=== PATIENT | female | born 1935 | race Caucasian/White ===

== ENCOUNTER 2017-11-15 20:21 | Inpatient (IN) | payer OTHER ==
[~2017-11-15] VITALS: Ht 162.6 cm; Wt 64.9 kg
--- NOTE | ~2017-11-15 | EKG ---
[address] [address] ELECTROCARDIOGRAM REPORT Name: DARNELL MI Room #: 357-P ADM IN M.R.#: [id number] Admission: 11/15/17 Attend Phys: Hiram Braga Discharge: Date of : 37 Report #: [id number] THIS REPORT FOR: //name// [facility] ED Test Date: 2017-11-15 Test Time: 20:37:55 Pat Name: DARNELL MI Department: Room: 357 Gender: F Sourcing Specialist: LUIS : [id number] Requested By: Dick Hood Order Number: [id number] MD: Jonas Mack Measurements Intervals [place] Rate: 70 P: 61 RI: 174 QRS: 43 QRSD: 87 T: 58 QT: 560 QTc: 605 Interpretive Statements Sinus rhythm Borderline T abnormalities, lateral leads Prolonged QT interval Compared to ECG 12/19/2013 11:24:00 Prolonged QT interval now present T-wave abnormality still present Electronically Signed On 11-16-2017 7:30:46 CDT by Jonas Mack [email or web address] <ELECTRONICALLY SIGNED> By: Jonas Mack MD, [facility] 11/16/17 0730 36 36 Jonas Mack MD, [facility] /EPI
--- NOTE | ~2017-11-15 | 2DMMODE ---
[facility] [address] [place] [address] 2 D/M-MODE ECHOCARDIOGRAM Name: DARNELL MI Room #: 357-P ADM IN M.R.#: [id number] Admission: 11/15/17 Attend Phys: Hiram Bonilla Discharge: Date of : 37 Date of Service: 11/16/17 1302 Report #: [id number] THIS REPORT FOR: //name// APPROVED REPORT Study performed: 11/16/2017 11:15:09 EXAM: Comprehensive 2D, Doppler, and color-flow Echocardiogram Patient Location: Bedside Room #: 357 Status: routine BSA: 1.70 HR: 70 bpm BP: 152/86 mmHg Rhythm: NSR Other Information Study Quality: Adequate/Poor parasternal window. Indications CVA. Hx: CVA, HTN, HLP 2D Dimensions RVDd: 26.52 mm IVSd: 10.63 (7-11mm) LVOT Diam: 21.60 (18-24mm) LVDd: 46.21 mm PWd: 8.58 (7-11mm) LVDs: 31.33 (25-40mm) Aortic Root: 30.99 mm Volumes Left Atrial Volume (Systole) Single Plane 4CH: 40.13 mL Single Plane 2CH: 47.65 mL LA ESV Index: 28.00 mL/m2 Aortic Valve AoV Peak Devante.: 1.25 m/s AO Peak Gr.: 6.25 mmHg LVOT Max P.43 mmHg LVOT Max V: 0.93 m/s REESE Vmax: 2.71 cm2 Mitral Valve E/A Ratio: 0.9 MV Decel. Time: 232.50 ms MV E Max Devante.: 0.90 m/s [facility] [address] [place] [address] 2 D/M-MODE ECHOCARDIOGRAM Name: DARNELL MI Room #: 357-P [facility] IN ..#: [id number] Admission: 11/15/17 Attend Phys: Hiram Bonilla Discharge: Date of : 37 Date of Service: 11/16/17 1302 Report #: [id number] A Devante.: 1.05 m/s MV PHT: 67.42 ms IVRT: 92.27 ms Pulmonary Valve PV Peak Devante.: 0.77 m/s PV Peak Gr.: 2.40 mmHg Pulmonary Vein P Vein S: 0.44 m/s P Vein A: 0.33 m/s P Vein D: 0.26 m/s P Vein A Dur.: 138.4 msec P Vein S/D Ratio: 1.69 Tricuspid Valve TR Peak Devante.: 2.32 m/s TR Peak Gr.: 21.53 mmHg Left Ventricle The left ventricle is normal size. There is normal LV segmental wall motion. Mild basal septal hypertrophy is present. Left ventricular systolic function is normal. LVEF is 60-65%. Mild diastolic dysfunction is present (impaired relaxation pattern). Right Ventricle The right ventricle is normal size. The right ventricular systolic function is normal. Atria The left atrium size is normal. The right atrium size is normal. Aortic Valve The aortic valve is normal in structure. No aortic regurgitation is present. There is no aortic valvular stenosis. Mitral Valve Mild mitral annular calcification. There is no mitral valve regurgitation noted. Tricuspid Valve The tricuspid valve is normal in structure. Trace to mild tricuspid regurgitation. Estimated PAP is 22mmHg plus the right atrial pressure. Pulmonic Valve Pulmonic valve is not well visualized. [facility] [address] [place] [address] 2 D/M-MODE ECHOCARDIOGRAM Name: DARNELL MI Room #: 357-P [facility] IN M.R.#: [id number] Admission: 11/15/17 Attend Phys: Hiram Bonilla Discharge: Date of : 37 Date of Service: 11/16/17 1302 Report #: [id number] Great Vessels The aortic root is normal in size. Ascending aorta is not well visualized. IVC is not well visualized. Pericardium There is no pericardial effusion. <Conclusion> Left ventricular systolic function is normal. LVEF is 60-65%. There is normal LV segmental wall motion. The aortic valve is normal in structure. No aortic regurgitation or stenosis Mild mitral annular calcification. No mitral valve regurgitation. Trace to mild tricuspid regurgitation. Estimated pulmonary artery pressure of 22mmHg plus the right atrial pressure. There is no pericardial effusion. <ELECTRONICALLY SIGNED> By: Jonas Mack MD, FACC 11/16/17 130 01 01 Jonas Mack MD, FACC /INF
--- NOTE | ~2017-11-15 | HC ---
[facility] [place] [address] CONSULTATION Name: DARNELL MI Room #: 357-P ADM IN M.R.#: [id number] Admission: 11/15/17 Attend Phys: Hiram Braga Discharge: Date of : 37 Report #: [id number] THIS REPORT FOR: //name// CC: Liat Braga MD Neurology Consultation HISTORY OF PRESENT ILLNESS: The patient is an 82-year-old female who presents with a 2-hour episode of left lower extremity weakness. The patient states that the leg just kept giving out on her. This reminded her of her stroke in 2013 when she had weakness involving the left lower extremity. A CT scan of the head demonstrated an indeterminate right parietal lobe infarct. Since that time, the patient has been on aspirin 325 mg daily. The patient states that she made a complete recovery from this stroke. To her knowledge, she was never told why she had had this stroke. This morning, she states she is back to baseline. PAST MEDICAL HISTORY: Hypertension, hyperlipidemia, stroke. PAST SURGICAL HISTORY: Left subclavian stent. MEDICATIONS: Vitamin D 2000 units daily, citalopram 10 mg daily, Ambien 5-10 mg at bedtime, omeprazole 20 mg daily, loratadine 10 mg daily, calcium with vitamin D daily, bupropion 150 mg daily, B12 500 mcg daily, Lexapro 5 mg daily, Avapro one tablet daily, levothyroxine 100 mcg daily, naproxen 220 mg daily, aspirin 325 mg daily, atorvastatin 10 mg at bedtime, Colace 100 mg b.i.d., donepezil 5 mg at bedtime, Diovan 80 mg daily. ALLERGIES: None. PHYSICAL EXAMINATION: VITAL SIGNS: Temperature is 36.4, pulse rate 75, respiratory rate 20, blood pressure 152/86, bedside pulse oximetry 96% on room air. NEUROLOGIC: Cranial nerves 2-12 are grossly intact. Motor exam demonstrates symmetrical strength in all 4 extremities with tone and bulk normal. Reflexes are trace throughout. Plantar responses are flexor. Coordination demonstrates intact [id number]. Gait was not tested. LABORATORY DATA: White blood cell count 7, hemoglobin 14.7, hematocrit 43.2, MCV 84.6, and platelet count 201,000. INR 1. Urinalysis negative. Chemistry: Sodium 140, potassium 3.9, chloride 106, carbon dioxide 26, BUN 19, creatinine 1, GFR 53, glucose 86. Liver functions normal. Triglycerides 129, cholesterol 143, LDL 73, HDL 45. TSH 4.6. IMPRESSION: This patient has a prior history of stroke. Yesterday, she may have had a transient ischemic attack. An MRI of the head has been ordered. I [address] [address] CONSULTATION Name: DARNELL MI Room #: 357-P [facility] IN M.R.#: [id number] Admission: 11/15/17 Attend Phys: Hiram Braga Discharge: Date of : 37 Report #: [id number] have added a carotid ultrasound and echocardiogram to complete the workup. Her cholesterol is very well controlled with Lipitor 10 mg at bedtime. Until the workup is complete, she may continue aspirin 325 mg daily, but this may need to be adjusted and she may require the addition of Plavix 75 mg daily. I have also asked physical therapy to work with her. I thank you for your kind referral of the patient and we will continue to follow her with you. <ELECTRONICALLY SIGNED> By: Sole Juan DO 11/16/17 1227 0746 0845 Sole Juan DO /nt
[~2017-11-15 20:21] MED LIST: ALEVE220 MG PO; ASPIR 8181 M1 PO; ASPIRIN EC81 M1 PO; BENADRYL25 MG PO; BISACODYL SUPP10 MG RECTAL; CALCIUM 600 +1 EAC1 PO; CALCIUM 600 MG1 EAC2 PO; CELEXA20 MG PO; COLACE100 MG PO; DIOVAN 80 MG TA80 M1 PO; DIOVAN HCT 80-1 EACH PO; DONEPEZIL HCL5 M1 PO; LEVOTHYROXIN0.112 M1 PO; LIPITOR10 MG PO; LORATIDINE 10 M10 M1 PO; MILK OF MA2400 MG/10 PO; MIRALAX17 GM PO; OMEPRAZOLE20 M2 PO; SENNA PO; TYLENOL325 MG PO; VITAMIN D-32000 UNIT PO; ZOCOR20 MG PO; ZOLPIDEM TARTRA10 MG PO
[2017-11-15] MEDS ORDERED: TESSALON PERLE100 M1 PO (20:34)
[2017-11-15] MEDS ORDERED: WELLBUTRIN 100100 MG PO (20:34)
[2017-11-15] MEDS ORDERED: CALCIUM CITRAT250 MG PO (20:35)
[2017-11-15] MEDS ORDERED: VITAMIN B-12500 MCG PO (20:36)
[2017-11-15] MEDS ORDERED: LEXAPRO5 MG PO (20:36)
[2017-11-15] MEDS ORDERED: SYNTHROID100 MC1 PO (20:37)
[2017-11-15] MEDS ORDERED: AVAPRO75 MG PO (20:37)
[2017-11-15 20:42] LABS: BASOPHILS 0.6 % (0.0-2.0); EOSINOPHILS 1.8 % (0.0-3.0); HEMATOCRIT 43.2 % (37.0-47.0); HEMOGLOBIN 14.7 gm/dL (12.0-15.0); LYMPHOCYTES 18.5 % (24.0-44.0); MCH 28.8 pg (26.0-34.0); MCV 84.5 fL (80.0-100.0); MONOCYTES 7.6 % (1.0-8.0); PLATELET COUNT 201 thou/uL (150-400); POLYS 71.5 % (36.0-66.0); RBC 5.11 mil/uL (4.20-5.00); RDW 14.4 % (10.5-14.5)
[2017-11-15] MEDS ORDERED: LIDOCAINE CREAM 4% (20:44)
[2017-11-15] MEDS ORDERED: ALEVE220 MG PO (20:45)
[2017-11-15] MEDS ORDERED: BACTRIM DS TAB1 EACH PO (20:46)
[2017-11-15 20:58] LABS: PROTIME 9.9 Seconds (9.3-11.4)
[2017-11-15 21:25] LABS: ANION GAP 9 mmol/L (7-16); BUN 24 mg/dL (7-18); CALCIUM 9.5 mg/dL (8.5-10.1); CHLORIDE 103 mmol/L (98-107); CO2 24 mmol/L (21-32); CREATININE 1.3 mg/dL (0.6-1.0); GLUCOSE 108 mg/dL (74-106); POTASSIUM 4.2 mmol/L (3.5-5.1); SODIUM 136 mmol/L (136-145)
[2017-11-15 21:31] LABS: ALBUMIN 3.7 g/dL (3.4-5.0); SGOT 19 U/L (15-37); SGPT 15 U/L (30-65); TOTAL BILIRUBIN 0.7 mg/dL (<0.1-1.0); TOTAL PROTEIN 7.2 g/dL (6.4-8.2); TROPONIN-I <0.06 ng/mL (<0.06)
[2017-11-15 21:38] LABS: URINE BILIRUBIN NEGATIVE (Negative); URINE BLOOD TRACE (Negative); URINE CLARITY CLEAR; URINE COLOR YELLOW; URINE GLUCOSE-RANDOM* NEGATIVE (Negative); URINE KETONES 1+ (Negative); URINE LEUKOCYTES-REFLEX NEGATIVE (Negative); URINE NITRITE-REFLEX NEGATIVE (Negative); URINE PROTEIN (DIPSTICK) NEGATIVE (Negative); URINE SPECIFIC GRAVITY >= 1.030 (1.005-1.035); URINE UROBILINOGEN 0.2 E.U./dl (0.2-1.0)
[2017-11-15 22:07] VITALS: BP 156/78
[2017-11-15 22:45] VITALS: BP 170/83
[2017-11-16 00:15] VITALS: BP 150/72
[2017-11-16 04:00] VITALS: BP 152/86
[2017-11-16 05:49] LABS: CALCIUM 8.6 mg/dL (8.5-10.1); POTASSIUM 3.9 mmol/L (3.5-5.1)
[2017-11-16 06:19] LABS: CHOLESTEROL 143 mg/dL (<200); HDL CHOLESTEROL 45 mg/dL (>40); LDL CHOLESTEROL 73 mg/dL (<100); TC:HDL 3.2 Ratio (Not establshd); TRIGLYCERIDE 129 mg/dL (<150); VLDL 26 mg/dL (<40)
[2017-11-16 10:00] VITALS: BP 139/63
[2017-11-16 15:03] VITALS: BP 144/70
[2017-11-16 19:30] VITALS: BP 147/67
[2017-11-17 03:40] VITALS: BP 148/70
[2017-11-17 07:13] VITALS: BP 153/74
[2017-11-17 12:43] VITALS: BP 148/82
[2017-11-17 15:16] VITALS: BP 134/78
[2017-11-17 20:00] VITALS: BP 139/74
[2017-11-18 04:29] VITALS: BP 150/89
[2017-11-18 07:31] VITALS: BP 134/61
[2017-11-18 11:36] VITALS: BP 140/72
[2017-11-18 15:31] VITALS: BP 137/60
[2017-11-18 19:04] VITALS: BP 139/68
[2017-11-19] VITALS (10 sets, daily range): BP systolic 132–167; BP diastolic 70–87
[2017-11-20 04:00] VITALS: BP 126/75
[2017-11-20 06:16] LABS: HEMATOCRIT 42.7 % (37.0-47.0); HEMOGLOBIN 14.5 gm/dL (12.0-15.0); MCH 28.7 pg (26.0-34.0); MCV 84.5 fL (80.0-100.0); RBC 5.05 mil/uL (4.20-5.00); RDW 14.6 % (10.5-14.5); WBC 5.1 thou/uL (4.0-11.0)
[2017-11-20 06:27] LABS: CALCIUM 9.2 mg/dL (8.5-10.1); CREATININE 1.1 mg/dL (0.6-1.0)
[2017-11-20 07:27] VITALS: BP 146/80
[2017-11-20 11:29] VITALS: BP 150/79
[2017-11-20 16:06] VITALS: BP 132/76
[2017-11-20 19:27] VITALS: BP 146/79
[2017-11-21 03:30] VITALS: BP 148/81
[2017-11-21 07:18] VITALS: BP 170/77
[2017-11-21 12:00] VITALS: BP 154/74
[2017-11-21 16:00] VITALS: BP 148/86
[2017-11-21 19:32] VITALS: BP 118/77
[2017-11-22 03:41] VITALS: BP 131/76
[2017-11-22 05:51] LABS: HEMATOCRIT 43.2 % (37.0-47.0); HEMOGLOBIN 14.3 gm/dL (12.0-15.0); MCH 28.1 pg (26.0-34.0); MCV 85.3 fL (80.0-100.0); RBC 5.07 mil/uL (4.20-5.00); RDW 14.7 % (10.5-14.5); WBC 5.7 thou/uL (4.0-11.0)
[2017-11-22 06:03] LABS: CALCIUM 9.4 mg/dL (8.5-10.1); CREATININE 1.1 mg/dL (0.6-1.0); MAGNESIUM 1.9 mg/dL (1.8-2.4)
[2017-11-22 06:31] LABS: FOLIC ACID 6.5 ng/mL (8.6-58.9)
[2017-11-22 07:29] VITALS: BP 128/65
[2017-11-22 11:20] VITALS: BP 127/72
== END 2017-11-22 15:05 | DRG 64 ==
LOC: ER 20:21 → EROBS 21:52 → 3W 21:52
PROVIDERS: Internal Medicine; Nuclear Medicine Nuclear Cardiology; Nurse Practitioner Acute Care; Physician Assistant
PROC: B41F1ZZ Fluoroscopy of Right Lower Extremity Arteries using Low Osmolar Contrast (ICD-10-PCS; principal; 2017-11-19)
PROC: B41G1ZZ Fluoroscopy of Left Lower Extremity Arteries using Low Osmolar Contrast (ICD-10-PCS; principal; 2017-11-19)
PROC: B4181ZZ Fluoroscopy of Bilateral Renal Arteries using Low Osmolar Contrast (ICD-10-PCS; principal; 2017-11-19)
PROC: B3151ZZ Fluoroscopy of Bilateral Common Carotid Arteries using Low Osmolar Contrast (ICD-10-PCS; principal; 2017-11-19)
PROC: B4141ZZ Fluoroscopy of Superior Mesenteric Artery using Low Osmolar Contrast (ICD-10-PCS; principal; 2017-11-19)
DX: I63.231 Cerebral infarction due to unspecified occlusion or stenosis of right carotid arteries (principal); N17.0 Acute kidney failure with tubular necrosis; I10 Essential (primary) hypertension; R29.6 Repeated falls; E78.5 Hyperlipidemia, unspecified; E03.9 Hypothyroidism, unspecified; G47.00 Insomnia, unspecified; M19.90 Unspecified osteoarthritis, unspecified site; I73.9 Peripheral vascular disease, unspecified; K21.9 Gastro-esophageal reflux disease without esophagitis; Z87.891 Personal history of nicotine dependence; Z79.82 Long term (current) use of aspirin; Z79.899 Other long term (current) drug therapy; Z82.49 Family history of ischemic heart disease and other diseases of the circulatory system; Z83.3 Family history of diabetes mellitus; Z28.21 Immunization not carried out because of patient refusal
CPT/HCPCS: 10879

== ENCOUNTER 2017-11-17 13:37 | Inpatient (IN) | payer OTHER ==
[~2017-11-17] VITALS: Ht 162.6 cm; Wt 68.5 kg
--- NOTE | ~2017-11-17 | PLAN ---
[facility] [address] [address] REHAB UNIT PLAN OF CARE Name: DARNELL MI Room #: 513-P ADM IN M.R.#: [id number] Admission: 11/22/17 Attend Phys: Hilton Haywood MD Discharge: Date of : 37 Report #: [id number] THIS REPORT FOR: //name// CC: Liat Haywood DATE OF SERVICE: 11/24/2017 PROGRESS NOTE AND OVERALL PLAN OF CARE SUBJECTIVE: The patient is seen back today in followup. She is in no distress. Last recorded temperature 36.7, pulse 76, respirations 20, blood pressure 130/82. No calf swelling. Neurologically, she does have what appears to be a left inferior quadrantanopia to visual confrontation. Transfers are min assist with gait min assist 175 feet with a front-wheeled walker. She has some decreased left-sided coordination deficits. Lower body dressing is max assist. In speech therapy, she has functional comprehension, [id number]-hb-[id number] cognitive deficits. ASSESSMENT: 1. 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 2. Left-sided weakness. 3. Left visual field neglect. 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 4. Right internal carotid artery stenosis 90%. 5. Prior history of a right cerebrovascular accident on 11/2013. 6. Hypertension. 7. Hyperlipidemia. 8. Hypothyroidism. PLAN: The overall plan of care is based on the preadmission screen, post-admission physician evaluation and information garnered from therapy assessments. 1. Estimated length of stay is probably at least 2-3 weeks pending progress. 2. Medical prognosis is reasonably good. 3. Anticipated interventions includes the interdisciplinary acute inpatient rehabilitation program. 4. Anticipated functional outcomes would be for the patient to become modified independent with transfers, mobility, ADLs and improved as far as cognition and visual perceptual deficits, as she can hopefully return back to her prior living situation. She will have involvement with the interdisciplinary acute inpatient rehabilitation team, PT, OT and speech, rehabilitation nursing and learning consultant physicians. 5. Discharge destination would be back to the home setting. She does live in an independent living apartment, used a roller walker. 6. Expected therapy by discipline includes PT, OT and speech 1 hour per day [place] [id number] REHAB UNIT PLAN OF CARE Name: DARNELL MI Room #: 513-P [facility] IN [facility].#: [id number] Admission: 11/22/17 Attend Phys: Hilton Haywood MD Discharge: Date of : 37 Report #: [id number] each five days a week throughout the duration of the acute inpatient rehabilitation stay. <ELECTRONICALLY SIGNED> By: Hilton Haywood MD 12/08/17 1319 0838 0858 Hilton Haywood MD /nt
--- NOTE | ~2017-11-17 | HC ---
[facility] [place] [address] [place] [address] CONSULTATION Name: DARNELL MI Room #: 513-P ADM IN M.R.#: [id number] Admission: 11/22/17 Attend Phys: Hilton Haywood MD Discharge: Date of : 37 Report #: [id number] THIS REPORT FOR: //name// CC: Liat Haywood DATE OF SERVICE: 12/04/2017 NEUROBEHAVIORAL STATUS EXAM: ATTENDING PHYSICIAN: Hilton Haywood MD. NURSE CLINICIAN: Fredy Cruz, PhD. CLINICAL PRESENTATION: The patient is an 82-year-old female admitted to the rehab unit at [facility] for comprehensive inpatient rehabilitation program to improve functional mobility, activities of daily living and self-care and mental status secondary to a subacute right posterior parietal occipital CVA. Her assessment on rehab includes left-sided weakness, right internal carotid artery stenosis at 90%, history of right CVA on 11/27/2013, hypertension, hyperlipidemia and hypothyroidism. A complete description of her medical condition, history and medications can be found in her medical record. Neuropsychological consultation was requested to provide assistance in the assessment of cognitive and emotional status and provide recommendations and services. Prior to this most recent admission, she was in an assisted living apartment. She had recently moved to [facility] in 10/2017 because of difficulty with falling. The patient has 2 children. A good social support is reported. She is from her second marriage. 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 The patient obtained a master's degree in [employer] and history. There is no reported prior history of alcohol/drug abuse or treatment for depression or anxiety. She indicates having not had alcohol for the last 4 years. TECHNIQUES UTILIZED: Clinical interview, review of medical records, staff consultation and behavioral observation, mini mental status exam 2 standard version, clock drawing and verbal fluency assessment (letter and category). EXAMINATION FINDINGS: The patient was alert and cooperative with the assessment. She accurately described events surrounding her admission. There is no report of auditory or visual hallucinations. She does present with some mild word finding deficits during interview. She does not report difficulty with short-term memory, appetite or energy level. She was not sure of the extent to which she was affected by the stroke. Her sleep is reported as good with medication. There are no changes in appetite. [address] [address] CONSULTATION Name: DARNELL MI Room #: 513-P [facility] IN M.R.#: [id number] Admission: 11/22/17 Attend Phys: Hilton Haywood MD Discharge: Date of : 37 Report #: [id number] Her performance on the MMSE 2 brief version was within normal limits with a raw score of 15 of 16. The patient was 3/3 for initial registration, 5/5 for orientation to time and place and 2/3 for immediate recall of 3 items after a brief time delay and distraction. Her performance on the MMSE 2 standard version was 28 of 30. She was 5/5 for serial sevens, naming, repetition, comprehension, ability to read and follow single command and writing within normal limits. The patient had difficulty with copying a simple geometric design. Letter fluency is in the borderline range with a T score of 34 and percentile rank of 5. Category fluency was extremely low with a T score of 23 and percentile rank of less than 1. Overall, total verbal fluency was a T score of 28 and percentile rank of 1. While the patient is showing well-maintained receptive language skills, her verbal fluency is showing significant impairment. Deficits in verbal fluency can often be associated with variability in thought organization that is a consequence of a vascular event within the right hemisphere. 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 RECOMMENDATIONS: The patient would benefit from increased assistance upon discharge, primarily with thought organization, planning and problem solving. Variability in expressive speech may make it more difficult for her to acquire the help that is necessary. Deficits in the initiation of action and goal oriented behavior are likely to require help. Help with aspects of instrumental activities of daily living as well as written instruction on specific behaviors to help with compensation. Thank you very much for allowing me to provide the consultation on this patient. <ELECTRONICALLY SIGNED> By: Fredy Cruz, PhD 12/05/17 2223 1430 0521 Fredy Cruz, PhD /nt
--- NOTE | ~2017-11-17 | HC ---
[facility] [place] [address] CONSULTATION Name: DARNELL MI Room #: 513-P [facility] IN M.R.#: [id number] Admission: 11/22/17 Attend Phys: Hilton Haywood MD Discharge: 12/08/17 Date of : 37 Report #: [id number] THIS REPORT FOR: //name// CC: Liat Haywood LEAD ELECTRICIAN: Hilton Garza, PhD REASON FOR CONSULTATION: To provide information relevant to treatment planning on the rehabilitation service. HISTORY OF PRESENT ILLNESS: The patient is an 82-year-old white female admitted on 11/17/2017 with left side weakness. She lives alone at [facility], and complained that the weakness came on quite suddenly. She has previous left-sided deficits due to a previous stroke in 2013. She denied facial weakness or speech impairment and none was noted. MRI reportedly indicated subacute right posterior occipital cerebrovascular accident. METHOD: The patient was interviewed, unit staff were consulted, available records were reviewed and the mini mental status examination 2 was utilized. RESULTS OF THE EXAMINATION: The patient was interviewed lying in her bed and was awake and alert and cooperative. Observed mood was euthymic. She denied depression and anxiety. There were no indications of ongoing psychotic processes. She was able to give a coherent account of recent events in her life, and also discussed pending plans for treatment of a partially blocked carotid artery. She was able to present remote personal and career history with good detail and to name her immediate family members and state their ages. Memory function is quite intact for personal, irrelevant and remote information. On the mini mental status 2 exam, her only deficit was on recall, in which she was unable to recall 3 previously registered words after 1 minute. Registration, orientation to time and place, attention and concentration, naming, repetition, comprehension, reading, writing, and drawing were all intact. Overall, score on the mini mental status exam 2 was in the average range. DIAGNOSTIC IMPRESSION: Possible very mild vascular neurocognitive disorder. Her level of cognitive function and emotional status are consistent with eventual return to her premorbid living situation. <ELECTRONICALLY SIGNED> By: Hilton Garza, PhD 12/10/17 1445 1321 [id number] Hilton Garza, PhD /nt
--- NOTE | ~2017-11-17 | H ---
[facility] [place] [address] [address] HISTORY AND PHYSICAL Name: DARNELL MI Room #: 513-P ADM IN M.R.#: [id number] Admission: 11/22/17 Attend Phys: Hilton Haywood MD Discharge: Date of : 37 Report #: [id number] THIS REPORT FOR: //name// CC: Liat Haywood DATE OF SERVICE: 11/22/2017 HISTORY OF PRESENT ILLNESS: The patient was originally admitted to [facility] on 11/15/2017 with left-sided weakness, which calls to her to fall to the ground while she was working with outpatient physical therapy. MRI showed a subacute right posterior parietal occipital CVA. She was seen by Neurology. Plavix was added. She had a history of a prior right cerebrovascular accident in 11/2013 with minimal left-sided residual. She was noted to have a significant decline in her premorbid function with the left-sided weakness. She also was diagnosed with right internal carotid artery stenosis. Carotid angio showed 90% and it indicated that she will need a carotid endarterectomy in 3-4 weeks. MRI confirmed a subacute ischemic infarct in right posterior parietal occipital region. Please see the full history and physical dictation for the patient's past medical history, allergies. HABITS: No history of tobacco or alcohol abuse. SOCIAL HISTORY: Lives alone, independent living apartment. Used a roller walker. Was independent with ADLs. REVIEW OF SYSTEMS: No complaints of chest pain, shortness of breath or abdominal discomfort. PHYSICAL EXAMINATION: VITAL SIGNS: As noted. She was seen earlier, was sleepy, pleasant. HEENT: Facies appeared symmetric. CHEST: Sounded clear to auscultation. CARDIOVASCULAR: Regular rate and rhythm. ABDOMEN: Bowel sounds positive, nontender. GENITOURINARY AND RECTAL: Deferred. Was able to verbalize without obvious word substitution or problems with word finding. EXTREMITIES: She does have left-sided weakness, a grade 4-/5 with some left neglect. No calf swelling. Transfers have been at a min assist level with gait. Short distances min assist with a front-wheeled walker. ASSESSMENT: 1. 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 2. Left-sided weakness. [facility] [address] [place] [address] HISTORY AND PHYSICAL Name: DARNELL MI Room #: 513-P ADM IN ..#: [id number] Admission: 11/22/17 Attend Phys: Hilton Haywood MD Discharge: Date of : 37 Report #: [id number] 3. Right internal carotid artery stenosis 90%. 4. History of right cerebrovascular accident on 11/2013. 5. Hypertension. 6. Hyperlipidemia. 7. Hypothyroidism. PLAN: The patient is admitted for acute in-hospital inpatient rehabilitation. From a postadmission physician evaluation perspective, there are no relevant changes since the preadmission screening. Please see the review of prior and current medical and functional conditions and comorbidities. As far as risk of complications, the patient has the above noted medical comorbidities as noted above. Initial plan of care involves the interdisciplinary acute inpatient rehabilitation program with the goal of maximizing the patient's functional independence, so that she can hopefully return back to her prior living situation. Measurable functional goals would be for the patient to become modified independent with transfers, mobility and ADLs as well as cognitive communication issues that she can return back to the home setting. Goal would be back home at least at the walker level. Prognosis is reasonably good with estimated length of stay probably at least 2-3 weeks pending progress. Potential barriers would include her multiple medical comorbidities and decreased functional status. The patient meets diagnostic criteria for an acute in-hospital inpatient rehabilitation stay. She meets medical necessity criteria. We will have the gis consultant physicians continue to follow. She does have the tolerance for therapies and has appropriate discharge goals back to the home setting. <ELECTRONICALLY SIGNED> By: Hilton Haywood MD 12/03/17 0910 1007 1127 Hilton Haywood MD /nt
--- NOTE | ~2017-11-17 | H ---
[facility] [place] [address] HISTORY AND PHYSICAL Name: DARNELL MI Room #: 513-P ADM IN M.R.#: [id number] Admission: 11/22/17 Attend Phys: Hilton Haywood MD Discharge: Date of : 36 Report #: [id number] THIS REPORT FOR: //name// CC: Liat Haywood DATE OF SERVICE: 11/22/2017 HISTORY OF PRESENT ILLNESS: This is an 82-year-old female who presented to the hospital with left-sided weakness. MRI scan of the brain revealed a subacute right posterior parietal/occipital CVA. She was evaluated by Neurology, and Plavix was added to her medication regimen. Ultrasound of the carotids showed some right internal carotid artery stenosis. Cerebral angiogram performed by IR revealed 90% stenosis of the right internal carotid artery with exophytic plaque. She is not a candidate for carotid stent. She will need to have a right carotid endarterectomy in about 3-4 weeks. She is now admitted to acute inpatient rehab for further strengthening prior to returning back home. Today, she denies headache, dizziness. She denies cough, chest pain, shortness of air. She denies nausea or constipation. She had a bowel movement yesterday. She denies difficulty urinating or dysuria. She does note her left-sided neglect. She denies any numbness or tingling. 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 HABITS: She is a former cigarette smoker 1 pack per day for 40 years. She quit smoking approximately 20 years ago. Denies any alcohol use. She quit drinking in 2013 and was a daily drinker until that time. No illicit drug use. ALLERGIES: PSEUDOEPHEDRINE. CURRENT MEDICATIONS: Losartan 25 mg daily, Claritin 10 mg daily, vitamin B12 of 500 mcg daily, Plavix 75 mg daily, Celexa 20 mg daily, vitamin D 2000 units daily, calcium plus vitamin D 1 tablet daily, Tums 500 mg 3 times a day, bupropion 150 mg daily, aspirin 325 mg daily, Protonix 20 mg daily, Synthroid 100 mcg daily, Aricept 5 mg at bedtime, atorvastatin 10 mg at bedtime, lidocaine p.r.n., Ambien p.r.n., Benadryl p.r.n., Benzonatate p.r.n., Tylenol p.r.n., Colace p.r.n., senna p.r.n.. SOCIAL HISTORY: The patient lives in an independent living apartment by herself. She utilized a roller walker premorbidly. She was independent with her ADLs. She had some assistance with IADLs. Her daughter is actively involved. REVIEW OF SYSTEMS: Remainder of her 14-point review of systems is negative [address] [address] HISTORY AND PHYSICAL Name: DARNELL MI Room #: 513-P [facility] IN MDarlene.#: [id number] Admission: 11/22/17 Attend Phys: Hilton Haywood MD Discharge: Date of : 36 Report #: [id number] except as listed in HPI. PHYSICAL EXAMINATION: VITAL SIGNS: 139/86, respirations 20, pulse 95, temperature of 98.1. She is 92% oxygen on room air. GENERAL: She is awake, alert, oriented x 4. She is in no acute distress. She is on room air. HEENT: Head is normocephalic. Eyes: EOMs are intact. No nystagmus. ENT: No sinus tenderness. LUNGS: Clear to auscultation bilaterally. No crackles, no wheeze. HEART: S1, S2, regular rate and rhythm. ABDOMEN: Bowel sounds are positive. Soft, nontender, nondistended. GENITOURINARY: No CVA tenderness. SKIN: Warm, dry and intact. NEUROLOGIC: She does have some left-sided neglect, left side weaker greater than the right. Decreased range of motion of the left upper extremity, mild abnormalities, pbwedj-aw-omer testing. No clonus, wrists or ankles. No lower extremity edema. Negative Homans sign. Min assist for sit to stand transfers, min assist ambulating 200 feet with a 4-wheel walker. She is mod assist for stairs. Bed mobility, standby assist. Visual field defect. PSYCHIATRIC: Pleasant affect. LABORATORY DATA: From 11/23/2017, sodium 135, potassium 3.8, BUN 20, creatinine 1.1. WBC 4.7, hemoglobin 14.2, platelets 193. Folic acid 6.5, vitamin B12 of 1155. ASSESSMENT: 1. Subacute right posterior parietal/occipital cerebrovascular accident. 2. Left-sided weakness. 3. Right internal carotid artery stenosis of 90%. 4. Hypertension. 5. Hyperlipidemia. 6. Hypothyroidism. 7. History of previous right cerebrovascular accident, 11/2013, with left-sided residual. PLAN: The patient has been admitted to acute inpatient rehabilitation for physical and occupational therapies with the goal to return back to her independent living apartment. She will need to have a carotid endarterectomy done in the next 3-4 weeks. We will have our hospitalist continue to follow for [address] [address] HISTORY AND PHYSICAL Name: DARNELL MI Room #: 513-P ADM IN .R.#: [id number] Admission: 11/22/17 Attend Phys: Hilton Haywood MD Discharge: Date of : 36 Report #: [id number] acute medical issues. She will have a team conference today. Please see extensive orders. <ELECTRONICALLY SIGNED> By: BURT Laureano 11/23/17 1240 1006 1041 BURT Laureano /nt
[~2017-11-17 13:37] MED LIST changes: +AVAPRO75 MG PO; +BACTRIM DS TAB1 EACH PO; +CALCIUM CITRAT250 MG PO; +LEXAPRO5 MG PO; +LIDOCAINE CREAM 4%; +SYNTHROID100 MC1 PO; +TESSALON PERLE100 M1 PO; +VITAMIN B-12500 MCG PO; +WELLBUTRIN 100100 MG PO
[2017-11-22 15:00] VITALS: BP 134/62
[2017-11-22 19:33] VITALS: BP 139/62
[2017-11-23 05:42] LABS: HEMATOCRIT 42.2 % (37.0-47.0); HEMOGLOBIN 14.2 gm/dL (12.0-15.0); MCH 28.6 pg (26.0-34.0); MCHC 33.7 g/dL (28.0-37.0); MCV 84.8 fL (80.0-100.0); RBC 4.98 mil/uL (4.20-5.00); RDW 14.6 % (10.5-14.5); WBC 4.7 thou/uL (4.0-11.0)
[2017-11-23 05:49] LABS: CALCIUM 9.5 mg/dL (8.5-10.1); CREATININE 1.1 mg/dL (0.6-1.0); POTASSIUM 3.8 mmol/L (3.5-5.1)
[2017-11-23 08:15] VITALS: BP 139/86
[2017-11-23 19:30] VITALS: BP 130/82
[2017-11-24 07:45] VITALS: BP 159/89
[2017-11-24 19:15] VITALS: BP 118/69
[2017-11-25 19:20] VITALS: BP 136/50
[2017-11-26 08:05] VITALS: BP 134/67
[2017-11-26 19:57] VITALS: BP 130/67
[2017-11-27 07:45] VITALS: BP 142/67
[2017-11-27 19:44] VITALS: BP 134/59
[2017-11-28 08:00] VITALS: BP 123/56
[2017-11-28 20:38] VITALS: BP 131/69
[2017-11-29 04:32] LABS: ABSOLUTE NEUTROPHILS 3.3 thou/uL (1.4-8.2); BASOPHILS 0.7 % (0.0-2.0); CALCIUM 9.1 mg/dL (8.5-10.1); CREATININE 1.2 mg/dL (0.6-1.0); EOSINOPHILS 2.6 % (0.0-3.0); HEMATOCRIT 41.1 % (37.0-47.0); HEMOGLOBIN 13.8 gm/dL (12.0-15.0); MAGNESIUM 1.9 mg/dL (1.8-2.4); MCH 28.5 pg (26.0-34.0); MCHC 33.7 g/dL (28.0-37.0); MCV 84.7 fL (80.0-100.0); MONOCYTES 10.8 % (1.0-8.0); PLATELET COUNT 210 thou/uL (150-400); POLYS 57.9 % (36.0-66.0); POTASSIUM 3.9 mmol/L (3.5-5.1); RBC 4.85 mil/uL (4.20-5.00); RDW 14.6 % (10.5-14.5); WBC 5.7 thou/uL (4.0-11.0)
[2017-11-29 08:00] VITALS: BP 132/76
[2017-11-29 19:33] VITALS: BP 120/60
[2017-11-30 08:15] VITALS: BP 141/74
[2017-11-30 19:45] VITALS: BP 134/56
[2017-12-01 08:30] VITALS: BP 152/71
[2017-12-01 19:27] VITALS: BP 132/59
[2017-12-02 09:19] VITALS: BP 132/72
[2017-12-02 19:20] VITALS: BP 141/62
[2017-12-03 06:19] LABS: ABSOLUTE NEUTROPHILS 2.6 thou/uL (1.4-8.2); BASOPHILS 0.8 % (0.0-2.0); EOSINOPHILS 4.2 % (0.0-3.0); HEMATOCRIT 39.5 % (37.0-47.0); HEMOGLOBIN 13.4 gm/dL (12.0-15.0); MCH 28.9 pg (26.0-34.0); MONOCYTES 10.6 % (1.0-8.0); PLATELET COUNT 202 thou/uL (150-400); POLYS 55.4 % (36.0-66.0); RBC 4.64 mil/uL (4.20-5.00); RDW 14.6 % (10.5-14.5); WBC 4.8 thou/uL (4.0-11.0)
[2017-12-03 06:37] LABS: CREATININE 1.2 mg/dL (0.6-1.0); POTASSIUM 3.8 mmol/L (3.5-5.1)
[2017-12-03 08:00] VITALS: BP 145/85
[2017-12-03 19:20] VITALS: BP 135/57
[2017-12-04 19:42] VITALS: BP 131/57
[2017-12-05 08:00] VITALS: BP 146/62
[2017-12-05 19:35] VITALS: BP 127/49
[2017-12-06 08:20] VITALS: BP 144/67
[2017-12-06 19:30] VITALS: BP 132/60
[2017-12-07 08:51] VITALS: BP 142/62
[2017-12-07 19:20] VITALS: BP 140/64
[2017-12-08 09:00] VITALS: BP 138/66
[2017-12-08] MEDS ORDERED: SENNA8.6 MG PO (09:17)
[2017-12-08] MEDS ORDERED: COLACE100 MG PO (09:17)
[2017-12-08] MEDS ORDERED: TUMS PO ×2 (09:17)
[2017-12-08] MEDS ORDERED: PLAVIX 75 MG TA75 M1 PO (09:17)
== END 2017-12-08 14:34 | DRG 65 ==
PROVIDERS: Nurse Practitioner; Physical Medicine & Rehabilitation
DX: I63.231 Cerebral infarction due to unspecified occlusion or stenosis of right carotid arteries (principal); N17.9 Acute kidney failure, unspecified; G81.94 Hemiplegia, unspecified affecting left nondominant side; Z60.2 Problems related to living alone; R53.81 Other malaise; I10 Essential (primary) hypertension; E03.9 Hypothyroidism, unspecified; F41.9 Anxiety disorder, unspecified; F32.9 Major depressive disorder, single episode, unspecified; H53.9 Unspecified visual disturbance; E78.5 Hyperlipidemia, unspecified; F01.50 Vascular dementia, unspecified severity, without behavioral disturbance, psychotic disturbance, mood disturbance, and anxiety; K59.00 Constipation, unspecified; H53.462 Homonymous bilateral field defects, left side; Z86.73 Personal history of transient ischemic attack (TIA), and cerebral infarction without residual deficits; Z87.891 Personal history of nicotine dependence; Z88.8 Allergy status to other drugs, medicaments and biological substances; Z79.899 Other long term (current) drug therapy; Z79.82 Long term (current) use of aspirin; Z79.01 Long term (current) use of anticoagulants
CPT/HCPCS: 10112

== ENCOUNTER 2018-05-10 21:20 | Inpatient (IN) | payer OTHER ==
[~2018-05-10] VITALS: Ht 162.6 cm; Wt 70.5 kg
--- NOTE | ~2018-05-10 | HC ---
[facility] [place] [address] CONSULTATION Name: DARNELL MI Room #: 422-P ADM IN M.R.#: [id number] Admission: 05/10/18 ������������������ Attend Phys: Fahad Sparks MD Discharge: ������������������ Date of : 36 Report #: [id number] THIS REPORT FOR: //name// CC: Fahad Maynard DATE OF SERVICE: 05/11/2018 HISTORY OF PRESENT ILLNESS: This is an 82-year-old female patient who was evaluated by me for the leg weakness. She is a poor historian. She had a prior CVA, but she is saying that she got weakness in the legs just in the last few days. She does not believe it is associated with any urinary incontinence. It is not clear how much weakness was there even before because of her prior stroke. REVIEW OF SYSTEMS: Indicate that looks like this patient had a stroke in the past. She has a history of hypothyroidism. She has a prior history of leg weakness. She does not think her memory is affected. She denies any new eye, ENT, cardiac, respiratory, GI, , musculoskeletal, constitutional, dermatological, hematological, psychiatric, throat, allergic symptom associated with present symptomatology. PAST MEDICAL HISTORY: Positive for stroke affecting the left side of the body. FAMILY HISTORY: Negative for any early age stroke. SOCIAL HISTORY: She apparently has a daughter, but she is not here and I am not able to talk to her. PHYSICAL EXAMINATION: Indicates she is alert. She is responsive. She thinks it is April. She knows what hospital she is in. She is able to name the president. Cranial nerve examination 2-12 indicates I cannot tell about the visual field, but it looks like they are affected. She has weakness on the left side, but I do not know how much is old and how much is new. Neuromuscular examinations indicate that she is weak in all 4 extremities. She can still move all 4 extremities, but it would appear she is weak in the proximal muscles of upper and lower extremities. Her reflexes are somewhat diminished. Her position sense is intact. Her tone looks symmetrical. It does not look like she has much cerebellar sign. I could not look at the patient's fundus. Cardiac examination is unremarkable. No respiratory difficulty or rhonchi was noticed. Pulses are palpable. No edema or cyanosis was noticed. Blood pressure is 151/60, pulse is 76, temperature is 98.6. LABORATORY DATA: White count is 7.4. She did have an MRI of the brain, which [place] [address] CONSULTATION Name: DARNELL MI Room #: 422- ADM IN M.R.#: [id number] Admission: 05/10/18 ������������������ Attend Phys: Fahad Sparks MD Discharge: ������������������ Date of : 36 Report #: [id number] IMPRESSION: Poorly defined history, but it looks like she is having weakness and weakness may be in all 4 extremities. Legs are more affected. Her CPK is high. The cause is not very clear. We need to consider the possibility of polymyositis in this patient, but the course appeared to be rapid. Rhabdomyolysis is another possibility and we will see if it comes down. RECOMMENDATIONS: I would like to get the MRI of the thoracic spine. Hopefully, we will get some pictures of cervical spine on the methods and procedures analyst images. We will see what happened to her CPK. She will need an EMG, but we do not have a machine in the hospital. I will try to contact the daughter also and see if we can get some more history from her. Thank you very much for this referral. ��������������������������������������������� ���������������������������������������� By: ��������������������������������������������� 1703 1551 Wali Gracia MD /nt
[~2018-05-10 21:20] MED LIST changes: +PLAVIX 75 MG TA75 M1 PO; +SENNA8.6 MG PO; +TUMS PO
[2018-05-10 21:22] VITALS: BP 109/85
[2018-05-10 22:23] LABS: ABSOLUTE NEUTROPHILS 5.5 thou/uL (1.4-8.2); BASOPHILS 0.4 % (0.0-2.0); EOSINOPHILS 0.2 % (0.0-3.0); HEMATOCRIT 40.4 % (37.0-47.0); HEMOGLOBIN 13.6 gm/dL (12.0-15.0); MCH 27.7 pg (26.0-34.0); MCHC 33.6 g/dL (28.0-37.0); MCV 82.5 fL (80.0-100.0); MONOCYTES 9.6 % (1.0-8.0); PLATELET COUNT 213 thou/uL (150-400); POLYS 73.8 % (36.0-66.0); RDW 13.7 % (10.5-14.5); WBC 7.4 thou/uL (4.0-11.0)
[2018-05-10 22:30] LABS: CALCIUM 9.3 mg/dL (8.5-10.1); CREATININE 1.1 mg/dL (0.6-1.0); POTASSIUM 3.7 mmol/L (3.5-5.1)
[2018-05-10] MEDS ORDERED: CRANBERRY200 MG PO (22:32)
[2018-05-10] MEDS ORDERED: ALEVE220 MG PO (22:33)
[2018-05-10 22:38] LABS: URINE BILIRUBIN NEGATIVE (Negative); URINE BLOOD 2+ (Negative); URINE CLARITY CLEAR; URINE COLOR YELLOW; URINE GLUCOSE-RANDOM* NEGATIVE (Negative); URINE KETONES NEGATIVE (Negative); URINE LEUKOCYTES-REFLEX NEGATIVE (Negative); URINE NITRITE-REFLEX NEGATIVE (Negative); URINE PROTEIN (DIPSTICK) NEGATIVE (Negative); URINE SPECIFIC GRAVITY 1.015 (1.005-1.035); URINE UROBILINOGEN 0.2 E.U./dl (0.2-1.0)
[2018-05-10 22:45] LABS: ALBUMIN 3.5 g/dL (3.4-5.0); TOTAL BILIRUBIN 0.9 mg/dL (<0.1-1.0); TOTAL PROTEIN 6.9 g/dL (6.4-8.2); TROPONIN-I 0.07 ng/mL (<0.06)
[2018-05-10 22:51] LABS: SQUAMOUS 4-10 Moderate /LPF (0-3)
[2018-05-10 22:52] LABS: BACTERIA-REFLEX 1-9 Few /HPF (None Seen); CASTS None Seen /LPF (None Seen); CRYSTALS None Seen /LPF (None Seen); MUCUS 0-3 Light strn/LPF (None Seen); URINE RBC 3-10 Few /HPF (0-2); URINE WBC-REFLEX 0-5 Rare /HPF (0-5)
[2018-05-10 23:45] VITALS: BP 160/51
[2018-05-10 23:59] VITALS: BP 153/59
[2018-05-11 00:15] VITALS: BP 153/70
--- NOTE | 2018-05-11 00:53 | NUR ---
PT ARRIVED TO THE UNIT AT AROUND 0010 HRS. ADMITTED TO ROOM 422. PT IS WEAK AND REQUIRES MAX ASSIST.ALERT TO SELF, PLACE AND TIME. PT KIDS AROUND AND SUPPORTIVE. SHE DENIES PAIN. FALL PREC INITIATED.VSS.CALL LIGHT WITHIN REACH. WILL CONTINUE WITH POC TILL EOS.
[2018-05-11 04:30] VITALS: BP 148/60
[2018-05-11 06:55] LABS: TROPONIN-I 0.08 ng/mL (<0.06)
[2018-05-11 07:49] VITALS: BP 142/63
--- NOTE | 2018-05-11 08:50 | EKG ---
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: ananth : 1935 Requested By: Shani De Leon Order Number: [id number] MD: Mega Molina Measurements Intervals [place] Rate: 73 P: 45 KS: 173 QRS: 41 QRSD: 104 T: 22 QT: 451 QTc: 497 Interpretive Statements Sinus rhythm Compared to ECG 11/15/2017 20:37:55 T-wave abnormality no longer present Electronically Signed On 05-11-2018 8:50:23 CDT by Mega Molina [email or web address] ��������������������������������������������� <ELECTRONICALLY SIGNED> ���������������������������������������� By: Mega Molina MD ��������������������������������������������� 05/11/18 0850 05 05 Mega Molina MD /SAMUEL
--- NOTE | 2018-05-11 09:04 | NUR ---
POWER PLANT ASSISTANT CALLED AT 0840 THIS AM R/T PT GARBLED SPEECH WITH OT AND MILD CONFUSION. PT A/O X 2-3. HAS PAST HX OF CVA WITH L SIDED RESIDUAL WEAKNESS. PT VSS. BG 96. NO FURTHER ORDERS RECEIVED FROM PCP.
--- NOTE | 2018-05-11 09:39 | EKG ---
[address] [address] ELECTROCARDIOGRAM REPORT Name: DARNELL MI Room #: 422-P ADM IN M.R.#: [id number] ������������������ Admission: 05/10/18 ������������������ Attend Phys: Fahad Sparks MD Discharge: ������������������ Date of : 36 Report #: [id number] ����������������������������������������������������������������� [id number] THIS REPORT FOR: //name// 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: GRQ : 1935 Requested By: Fahad Sparks Order Number: [id number] MD: Jonas Mack Measurements Intervals [place] Rate: 71 P: 21 ND: 146 QRS: 35 QRSD: 108 T: 10 QT: 433 QTc: 471 Interpretive Statements Sinus rhythm Abnormal R-wave progression, early transition Borderline T abnormalities Compared to ECG 05/10/2018 22:06:42 T-wave abnormality now present Electronically Signed On 05-11-2018 9:39:47 CDT by Jonas Mack [email or web address] ��������������������������������������������� <ELECTRONICALLY SIGNED> ���������������������������������������� By: Jonas Mack MD, [facility] ��������������������������������������������� 05/11/18 0939 0853 0853 Jonas Mack MD, [facility] /EPI
--- NOTE | 2018-05-11 11:39 | NUR ---
ASSUMED CARE OF PT AT 0700. OT REPORTED PT CONFUSED AND DIFFICULTY SPEAKING AT 0827. PHYSICIAN NOTIFIED X3. RAPID RESPONSE INITIATED. PT IN STABLE CONDITION. SOME DIFFICULTY SPEAKING STILL NOTED, TREMORS, AND WEAKNESS. PHYSICIAN AWARE. NEW SPEECH EVAL ORDERS. PLAN FOR MRI TODAY. DENIES PAIN. WILL CONTINUE TO MONITOR.
--- NOTE | 2018-05-11 12:04 | NUR ---
Case opened to follow for dc planning. Pt known to cm from recent admission in November 2017 with [facility] acute rehab stay d/t cva. Pt readmitted with rhabdo and r/o cva. MRI pending today d/t severe le weakness and garbled speech. PT/OT evaling this am. Complex Commercial Litigation Paralegal visited with the pt's dtr Rosa via phone. She reports that the pt dc'd from [facility] in November and when to [facility] for continued rehab. She went to [facility] in December with Regis ARRIAGA. She is still recieving home therapy services. The pt is indep in her apt with her rolator walker. She is occasionally incont and is able to change her own depends. 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 She does require supervision/setup for bathing. Meals are brought to her apt and her dtr sets up her pill box. The pt's dtr Rosa and son Manish are her DPOA's for health care if needed. They are receptive to [facility] again or [facility] acute rehab pending her workup,diagnosis and recommendations. Support provided. Dtr concerned about a new stroke. Will follow. Regis silva is aware of the pt admission and following along.
--- NOTE | 2018-05-11 14:29 | NUR ---
FAXED REFERRAL TO [facility] LEFT MSG WITH DEVONTE IN ADM. TO REVIEW REFERRAL AND PT. RESIDES AT [facility]. DCP TO FOLLOW.
[2018-05-11 16:02] VITALS: BP 151/60
[2018-05-11 19:22] VITALS: BP 145/64
--- NOTE | 2018-05-12 03:48 | NUR ---
ASSESSMENT COMPLETED AT THE START OF SHIFT. PT SLEEPY. ALERT TO SELF AND PLACE. FORGETFUL. FLAT AFFECT WITH OCCASIONAL SMILE. DENIES PAIN. BEEN INCONTINENT THE WHOLE TIME. HAD A BM.APPEARS WEAK AND DIFFICULT TO ROLE IN BED WITHOUT ASSIST. AFEBRILE. WILL CONTINUE WITH POC TILL EOS.
[2018-05-12 04:51] VITALS: BP 152/71
--- NOTE | 2018-05-12 09:18 | NUR ---
PT IS AQ&0X3, VERY QUIET AND SLOW W/ANSWERS, WOKE UP WITH RIGHT EYE SHUT FROM SLEEP DEBRIS, SHOWED CALL LIGHT USE AND SHE DID RETURN DEMO. SLOW TO SWALLOW FOOD/PILLS. RA, HAS MRI SCHEDULED FOR 1129, LET HER KNOW WE'D CLEAN HER UP AFTER BREAKFAST. IV MACHINE BEEPING D/T OCCLUSION FROM HER BENDING HER RIGHT ARM W/IV IN RAC. WILL WRAP AFTER BREAKFAST SHE'S USING IT TO EAT WITH. ENCOURAGED HER TO CALL FOR ANY NEEDS
[2018-05-12 09:30] VITALS: BP 149/69
--- NOTE | 2018-05-12 15:21 | NUR ---
S/W DTR TO DISCUSS REHAB AT [facility] AND SHE IS AGREEABLE TO TRANSFER ONCE MEDICALLY STABLE. UPDATE PROVIDED TO YASSINE FROM [facility]. DTR CONCERNED ABOUT WHAT PT'S DX IS AT THIS POINT WITH THE CHANGE IN HER CONDITION.
[2018-05-12 18:30] VITALS: BP 137/67
[2018-05-12 19:07] LABS: TSH 1.334 uIU/mL (0.358-3.740)
[2018-05-12 20:25] VITALS: BP 150/74
--- NOTE | 2018-05-13 02:21 | NUR ---
PT STILL SAYING VERY FEW WORDS.TAKES TIME TO ANSWER QUESTIONS. DENIES PAIN. HEAVY WETTER. HAD A LARGE BM AT THE START OF SHIFT. PT REQUIRES Q 2 TURN. BARRIER CRM APPLIED TO BUTTOCK AREA. PT GOT A NICE BED BATH BEFORE GOING TO SLEEP.SAFETY PRECAUTIONS IN PLACE.
[2018-05-13 08:26] VITALS: BP 149/73
--- NOTE | 2018-05-13 16:03 | NUR ---
PT. DISCHARGING TODAY TO [facility] SKILLED. FAXED DC ORDERS/SUMMARY TO FACILITY SPOKE WITH DEVONTE SHE RECEIVED DC ORDERS AND ARRANGED TRANSPORT VIA [facility]AN FOR 1600 TODAY. NOTIFIED DTR (RUBA) OF DISCHARGE AND TIME OF TRANSPORT. UNIT NOTIFIED AND CHART COPY PER US. RN TO CALL REPORT TO [phone].
--- NOTE | 2018-05-13 16:15 | NUR ---
ASSUMED CARE AT 0700,SHIFT ASSESSMENT DONE, MEDS GIVEN, VSS. WENT FOR MRI THIS AM, WAS SEEN BY NEURO AND ORTHO, ORTHO WANTED DONUT CUSHION, ORDERED THROUGH CS. DISCHARGE ORDERS RECEIVED, REPORT CALLED AND GIVEN TO TANYA. PERIPHERAL IV WAS TAKEN OUT. LEFT WITH TRANSPORTATION AT 1615.
--- NOTE | 2018-05-15 12:32 | EEG ---
[facility] [place] [address] ELECTROENCEPHALOGRAM Name: DARNELL MI Room #: 422-P [facility] IN M.R.#: [id number] ������������������ Admission: 05/10/18 ������������������ Attend Phys: Fahad Sparks MD Discharge: 05/13/18 ������������������ Date of : 36 Report #: [id number] ����������������������������������������������������������������� [id number] THIS REPORT FOR: //name// CC: Fahad Maynard HISTORY: The patient is an 82-year-old female with altered mental status. An EEG is requested for further evaluation. DESCRIPTION: The awake record consists of symmetric moderate amplitude 8 cycles per second posterior dominant rhythm, which attenuates with eye opening. Eye blink and muscle artifact are seen during recording. Low amplitude 20-25 cycles per second activity is seen predominantly over the frontal head regions. Stage I sleep is characterized by attenuation of the background record. No clear focal abnormalities or epileptiform discharges are noted. IMPRESSION: This is a normal adult awake to stage I sleep record. No focal abnormalities or epileptiform discharges are noted. ���������������������������������������� <ELECTRONICALLY SIGNED> ���������������������������������������� By: Sole Juan DO ��������������������������������������������� 05/15/18 1232 1445 1757 Sole Juan DO /nt
== END 2018-05-13 17:25 | DRG 70 ==
LOC: ER 21:20 → 4E 23:34 → EROBS 23:34 → 4E 05-11 00:02
PROVIDERS: Nurse Practitioner Acute Care; Psychiatry & Neurology Neuromuscular Medicine; Student in an Organized Health Care Education/Training Program; ADMIT Hospitalist
DX: G93.41 Metabolic encephalopathy (principal); E43 Unspecified severe protein-calorie malnutrition; M62.82 Rhabdomyolysis; S32.10XA Unspecified fracture of sacrum, initial encounter for closed fracture; I69.354 Hemiplegia and hemiparesis following cerebral infarction affecting left non-dominant side; G93.40 Encephalopathy, unspecified; I10 Essential (primary) hypertension; E78.5 Hyperlipidemia, unspecified; E03.9 Hypothyroidism, unspecified; K21.9 Gastro-esophageal reflux disease without esophagitis; M62.84 Sarcopenia; G47.00 Insomnia, unspecified; Z95.820 Peripheral vascular angioplasty status with implants and grafts; K59.00 Constipation, unspecified; Z88.8 Allergy status to other drugs, medicaments and biological substances; Z82.49 Family history of ischemic heart disease and other diseases of the circulatory system; Z83.3 Family history of diabetes mellitus; Z87.891 Personal history of nicotine dependence; Z79.82 Long term (current) use of aspirin; Z79.899 Other long term (current) drug therapy; Z79.1 Long term (current) use of non-steroidal anti-inflammatories (NSAID); W18.39XA Other fall on same level, initial encounter; Y93.89 Activity, other specified; Y92.89 Other specified places as the place of occurrence of the external cause; Y99.8 Other external cause status
CPT/HCPCS: 10084

== ENCOUNTER 2018-05-19 10:13 | Inpatient (IN) | payer OTHER ==
[~2018-05-19] VITALS: Ht 162.6 cm; Wt 67.4 kg
--- NOTE | ~2018-05-19 | HC ---
[facility] [place] [address] CONSULTATION Name: DARNELL MI Room #: 353-P [facility] IN M.R.#: [id number] Admission: 05/20/18 ������������������ Attend Phys: Fahad Sparks MD Discharge: 05/24/18 ������������������ Date of : 36 Report #: [id number] THIS REPORT FOR: //name// CC: Fahad Loo DATE OF SERVICE: 05/23/2018 REQUESTING PHYSICIAN: Dr. Sparks. CHIEF COMPLAINT: CVA. HISTORY OF PRESENT ILLNESS: The patient is an 82-year-old female who presented on 05/19/2018. The patient had been discharged last week with cerebrovascular accident. She had had left MCA stroke that was large in type. She has had decline since. Unfortunately, since going to rehabilitation, she has been dependent entirely for p.o. intake, nonverbal, now with significant right neglect. She had a previous CVA with left weakness and she had had a carotid endarterectomy in 01/2018. It appears that she has significant aphasia and possible dementia. Certainly family states after talking with daughter that she has had significant decline in her overall condition and that they would not wish to pursue any kind of feeding tube at this time. PAST MEDICAL HISTORY: Significant for hypertension, hypothyroidism, left hemianopsia, left-sided weakness, right neglect, peripheral vascular disease, depression, aphasia expressive and receptive potentially. ALLERGIES: SUDAFED, ENALAPRIL. SOCIAL HISTORY: Daughter is durable power of hot plate plywood press offbearer, this is Christi. She also has a son, Nino. I have talked with Christi today. She has no significant smoking history or other drug use history. FAMILY HISTORY: Noncontributory toward current condition. PAST SURGICAL HISTORY: Right carotid endarterectomy known. MEDICATIONS: Plavix 75 mg, Benadryl apparently was used p.r.n., vitamin D3, omeprazole, Claritin, Wellbutrin, irbesartan, levothyroxine, Aricept, aspirin, possibly Ambien, Lexapro, Lipitor, naproxen. REVIEW OF SYSTEMS: Unable to obtain at this time. Could not elicit communication even when given signals such as blinks or hand squeezes, unable to get further information from the patient, although she appeared to be comfortable currently. [address] [address] CONSULTATION Name: DARNELL MI Room #: [address] [place] [address] IN M.R.#: [id number] Admission: 05/20/18 ������������������ Attend Phys: Fahad Sparks MD Discharge: 05/24/18 ������������������ Date of : 36 Report #: [id number] PHYSICAL EXAMINATION: VITAL SIGNS: Temperature 37.1, pulse 72, respirations 20, blood pressure 142/72, 91% on room air. GENERAL: The patient appears to be alert to verbal stimuli, but unable to assess her orientation level. She is in no acute distress. HEENT: She has no scleral icterus or conjunctival injection. CARDIOVASCULAR: Currently regular rate and rhythm without murmur. LUNGS: Clear to auscultation bilaterally. No wheezes, rales or rhonchi. ABDOMEN: Soft, nontender to palpation, positive bowel sounds in all 4 quadrants. MUSCULOSKELETAL: Right hemiparesis. She has left upper extremity strength. She is able to squeeze my hands, but unable to follow further instructions. LABORATORY DATA: These include CBC within normal limits. Creatinine 1.1. Specific gravity 1.030 on admission. ASSESSMENT AND PLAN: 1. Cerebrovascular disease. Discussed significantly with family member and spent approximately 35 minutes on discussion of advanced care planning today and discussed hospice as a potential option as discussed over the weekend. They are wanting to pursue this. They are wanting to pursue inpatient hospice if possible. I have discussed with field nurse case manager that we will consult the patient hospice initially. I did discuss the possibility of need for long-term care with hospice at a long-term care facility. They are understanding of this. They confirmed her DNR status at this time. Again, we will not be doing any kind of feeding tube or pursuing any other intervention to continue her longevity. They are understanding that IV fluids will also be stopped at hospice care and they are again wishing to pursue this. 2. Dysphagia, again contributing to overall above. 3. Aphasia, contributing to her overall condition, unable to assess whether she has significant dementia or if this is just inability to respond and/or receive information; however, certainly with the amount of strokes that she has had, she has had a significant decline in her overall condition and I believe hospice would be appropriate for her. Thank you very much for this consultation. Please let me know if you have any further questions regarding this consult. ��������������������������������������������� ���������������������������������������� By: ��������������������������������������������� 1029 0445 Jae Brito DO /nt
[~2018-05-19 10:13] MED LIST changes: +ASA5UEC PO; -ASPIRIN EC81 M1 PO; +CRANBERRY200 MG PO; +LEVOTHYROXINE150 MCG PO; -LIDOCAINE CREAM 4%; +LIDOCAINE CREAM 4% TOP; -SYNTHROID100 MC1 PO; -WELLBUTRIN 100100 MG PO; +WELLBUTRIN XL150 MG PO
[2018-05-19 10:27] LABS: ABSOLUTE NEUTROPHILS 6.2 thou/uL (1.4-8.2); BASOPHILS 0.4 % (0.0-2.0); EOSINOPHILS 0.1 % (0.0-3.0); HEMATOCRIT 48.5 % (37.0-47.0); HEMOGLOBIN 16.2 gm/dL (12.0-15.0); LYMPHOCYTES 13.9 % (24.0-44.0); MCH 27.9 pg (26.0-34.0); MCHC 33.4 g/dL (28.0-37.0); MCV 83.6 fL (80.0-100.0); MONOCYTES 9.6 % (1.0-8.0); PLATELET COUNT 262 thou/uL (150-400); RDW 14.4 % (10.5-14.5); WBC 8.1 thou/uL (4.0-11.0)
[2018-05-19 10:34] LABS: CALCIUM 9.8 mg/dL (8.5-10.1); CREATININE 0.9 mg/dL (0.6-1.0); POTASSIUM 4.1 mmol/L (3.5-5.1)
[2018-05-19 10:39] LABS: ALBUMIN 3.8 g/dL (3.4-5.0); TOTAL BILIRUBIN 1.2 mg/dL (<0.1-1.0); TOTAL PROTEIN 7.7 g/dL (6.4-8.2)
[2018-05-19] MEDS ORDERED: ARICEPT 5 MG TAB5 MG PO ×2 (10:42)
[2018-05-19 11:33] LABS: URINE BLOOD 2+ (Negative); URINE CLARITY CLEAR; URINE COLOR YELLOW; URINE GLUCOSE-RANDOM* NEGATIVE (Negative); URINE KETONES 2+ (Negative); URINE LEUKOCYTES NEGATIVE (Negative); URINE NITRITE NEGATIVE (Negative); URINE PROTEIN (DIPSTICK) 1+ (Negative); URINE SPECIFIC GRAVITY >= 1.030 (1.005-1.035); URINE UROBILINOGEN 0.2 E.U./dl (0.2-1.0)
[2018-05-19 11:34] LABS: ICTOTEST (BILI CONFIRMATORY) Negative (Negative); URINE BILIRUBIN NEGATIVE (Negative)
[2018-05-19 11:54] LABS: CASTS None Seen /LPF (None Seen); CRYSTALS None Seen /LPF (None Seen); SQUAMOUS 0-3 Few /LPF (0-3)
[2018-05-19 11:55] LABS: URINE RBC 0-2 Rare /HPF (0-2)
[2018-05-19 11:56] LABS: URINE WBC 0-5 Rare /HPF (0-5)
[2018-05-19 11:57] LABS: BACTERIA 1-9 Few /HPF (None Seen)
[2018-05-19 14:55] VITALS: BP 195/80
[2018-05-19 15:21] VITALS: BP 187/96
--- NOTE | 2018-05-19 18:39 | NUR ---
Assumed care of patient at 1520. Pt initially presented to ED with AMS and Fever. CT and MRI confirmed CVA. Pt arrived to unit awake and alert. Pt is non-verbal. Attempts to follow commands, but not always consistent. NIH Score of 35. Daughter reports that prior to last admit approximately 10 days ago that PT was verbal and ambulating. Pt has been made NPO until speech can evaluate. She presents with substantial right-sided weakness and facial droop. Clarified with daughter about code status, Pt is DNR. Pt was SR, with clear lungs, and skin intact. Pt's heels were mildly boggy. Have been offloaded with pillows. Incontinent of urine; external female catheter placed. Repositioning every 2 hours[address] Fall precautions in place. Not yet progressing toward POC goals. Will continue to monitor and assess.
[2018-05-19 20:00] VITALS: BP 190/87
[2018-05-19] MEDS ORDERED: LEXAPRO 10 MG T10 M1 PO (22:13)
[2018-05-20 00:26] VITALS: BP 185/83
--- NOTE | 2018-05-20 01:38 | NUR ---
patient is arousable. patient can follow some commands. patient has no use on right side. can resist gravity on LUE. patient can twich lt corner of mouth, no eyebrown movement. patient drosy. patient responds to all painful stimuli. patient is incontient. patient is on 2l nc. patient is npo for speech eval. lbm was the 10th. blood pressure is elevated. patient is nonverbal. patient is q2 turn. Q6 accuchecks. patient is resting comfortably in bed. wcm.
[2018-05-20 04:20] LABS: ALBUMIN 3.3 g/dL (3.4-5.0); CALCIUM 9.2 mg/dL (8.5-10.1); CREATININE 0.8 mg/dL (0.6-1.0); POTASSIUM 3.5 mmol/L (3.5-5.1); TOTAL BILIRUBIN 1.3 mg/dL (<0.1-1.0); TOTAL PROTEIN 6.8 g/dL (6.4-8.2)
[2018-05-20 04:31] LABS: HEMATOCRIT 42.2 % (37.0-47.0); MCH 27.9 pg (26.0-34.0); MCV 84.7 fL (80.0-100.0); RBC 4.99 mil/uL (4.20-5.00); RDW 14.6 % (10.5-14.5); WBC 7.3 thou/uL (4.0-11.0)
[2018-05-20 04:39] LABS: HEMOGLOBIN 13.9 gm/dL (12.0-15.0)
[2018-05-20 04:40] VITALS: BP 144/61
[2018-05-20 08:18] VITALS: BP 133/55
[2018-05-20] MEDS ORDERED: [UNRECOGNIZED DRUG - OTHER] (09:56)
--- NOTE | 2018-05-20 11:13 | NUR ---
care of pt assumed this am @ ~0700. pt resting quietly and comfortably in bed. pt opens yes to command, otherwise has eyes closed. pt non-verbal this am. pt noted to follow commands intermittently. pt able to move her lue and noted able to move the toes on her lt foot to command. no movement seen in rue and rle. pt currently npo, awaiting st for a bs swallow study, oral care given. pt at bs this am and sat pt at the side of the bed w/ max assist. pt noted to be incontinent of urine so use of an external female catheter in place. no family at bs this am.
[2018-05-20 11:51] VITALS: BP 142/53
--- NOTE | 2018-05-20 12:08 | NUR ---
DISCHARGE PLANNING. CALL PLACED TO DEVON[facility] [employer] AND [employer]. PRIOR ADMISSION RECORDS REFLECT PATIENT DISCHARGED TO [facility] POST ACUTE CARE ON 05/13/2018. CONFIRMED WITH DEVONTE THAT PATIENT ADMITTED TO HOSPITAL FROM [facility]. CVA ADMITTING DIAGNOSIS. 5 NORTH CONSULT COMPLETED, 5N TO FOLLOW PATIENTS PRGRESSION TO DETERMINE IF SHE WILL QUALIFY FOR REHAB STAY. DEVONTE NOTIFIED AND STATED THAT IF PATIENT WAS NOT A CANDIDATE FOR [address] [place] [id number] TO SUBMIT REFERRAL TO HER FOR POST ACUTE CARE NEED. DEVONTE STATES [facility] [place] ACCEPTING OF PATIENT FOR POST ACUTE CARE STAY PENDING INSURANCE AUTH. UNIT CM/SW AWARE. FOLLOWING TO ASSIST WITH DISCHARGE NEEDS.
--- NOTE | 2018-05-20 12:23 | NUR ---
ASSESSMENT: CM REVIEWED CHART AND SPOKE WITH ATTENDING. PT WAS ADMITTED TO US FROM [facility] DUE TO NEW CVA. PT WAS AT [facility] IN NOVEMBER FOR PAST CVA AND DISCHARGED FROM OUR ACUTE REHAB. PT THEN WENT TO LIVE AT [facility] BEFORE ENDING UP BACK IN THE HOSPITAL AND WENT TO [facility]. CM SPOKE WITH PATIENTS DAUGHTER. SHE STATES SHE IS UNSURE SHE WILL WANT HER TO RETURN TO [facility] OR ANOTHER SNF AND WANTS TO REVIEW A LIST. CM NOTIFIED PATIENTS DAUGHTER SUSHANT THAT CM WOULD LEAVE A LIST AT HER MOTHERS BEDSIDE SO SHE COULD REVIEW FOR ONCE PATIENT IS MEDICALLY STABLE IF NEEDING SNF AT DISCHARGE. 5N WAS CONSULTED FOR PATIENT BUT PT IS UNABLE TO TOLERATE 3HRS OF THERAPY FOR ACUTE REHAB ADMISSION AT THIS TIME. PENDING PATIENTS PROGRESSIION 5N IS CONTINUING TO FOLLOW PATIENT AND CM LEFT A SNF LIST FOR DAUGHTER TO REVIEW. CM NOTIFIED [facility] AT [facility] AND FAXED CLINICAL TO UPDATE THEM. CM WILL CONTINUE TO FOLLOW TO ASSIST NEEDED. NO PLANS FOR WEEKEND DISCHARGE PATIENT IS STILL HAVING TESTING COMPLETED AND WILL NEED INSURANCE AUTH AT TIME OF DISCHARGE IF PATIENT IS ABLE TO QUALIFY FOR ACUTE REHAB OR SNF PENDING HER PROGRESSION. CM WILL CONTINUE TO FOLLOW.
--- NOTE | 2018-05-20 12:39 | NUR ---
PATIENT SEEN BY ALEC ERICKSON NP WITH DR. TURCIOS. AT THIS TIME PATIENT WOULD NOT BE ABLE TO PARTICIPATE IN THERAPY LEVEL REQUIRED BY ACUTE REHAB. WILL CONTINUE TO FOLLOW FOR POSSIBLE ADMISSION IF PATIENT IMPORVES. THANK YOU FOR THIS REFERRAL.
[2018-05-20 15:23] VITALS: BP 147/66
[2018-05-20 19:31] VITALS: BP 143/53
[2018-05-21 04:51] VITALS: BP 124/55
[2018-05-21 05:27] LABS: CALCIUM 8.7 mg/dL (8.5-10.1); CREATININE 0.7 mg/dL (0.6-1.0); POTASSIUM 3.1 mmol/L (3.5-5.1)
--- NOTE | 2018-05-21 05:41 | NUR ---
PATIENT IS PROGRESSING SLOWLY IN HER CARE PLAN. VITAL SIGNS STABLE THROUGHOUT SHIFT WITH NURSE NOT PERCEIVING ANY PAIN OR NAUSEA ON BEHALF OF PATIENT. SHE IS NON VERBAL SO NURSES ABILITY TO ACCURATELY KNITTED GOODS SHAPER PATIENTS LOC AND NIH WAS LIMITED. NIH PER PROTOCOL WITH PATIENT SCORING 21 AT HIGHEST ASSESSMENT. BREATHING STABLE EVIDENCED BY SPOT OXYGENATION CHECKS. FREQUENT INCONTINENCE WITH PATIENT CHECKED AND CLEANED OFTEN. TURNS AND SKIN CARE EVERY TWO HOURS PER PROTOCOL WITH NO BREAKDOWN NOTED. CONTINUE PLAN OF CARE.
[2018-05-21 08:04] VITALS: BP 163/69
[2018-05-21 15:40] VITALS: BP 109/54
--- NOTE | 2018-05-21 16:43 | NUR ---
PT CARE ASSUMED APPROX 0700. PT OPENS EYES TO VOICE AND RESPONDS TO ALL STIMULATION. DOES NOT RESPOND OR SPEAK. INTERMITTENTLY FOLLOWS ONE STEP COMMANDS. DR KNOX ORDERED TO STOP NIH ASSESSMENTS. MEDS AND FOOD HELD DUE TO PT NOT COOPERATING WITH STAFF WHILE FEEDING. PT ALSO DOES NOT ALLOW FOR ORAL CARE. DR KNOX AWARE THAT PO MEDS WERE HELD. NEURO AND DR KNOX SPOKE TO FAMILY REGARDING PROGNOSIS AND MEDICAL WISHES. PT HAS HOSPICE CONSULT. IVF REMAIN TO POC. K+ REPLACED THIS SHIFT. LAB DRAW NOT REORDERED DUE TO FAMILY WISHES FOR HOSPICE. WILL F/U WITH DR KNOX. PT DOES NOT APPEAR TO BE IN PAIN OR ANY DISTRESS. EXTERNAL CATH IN PLACE. TURNING PT Q2HRS AND PRN. FAMILY LEFT BEDSIDE APPROX 1400.
--- NOTE | 2018-05-21 19:08 | NUR ---
DR KNOX PAGED REGARDING PIV DISLOGEMENT AND QUESTION TO REDRAW K+ LEVEL PER REPLACEMENT PROTOCOL. NO CALL BACK. PT IS NOT IN DISTRESS. WILL ALLOW NOC NURSE TO F/U.
[2018-05-21 20:00] VITALS: BP 110/63
[2018-05-22 03:20] VITALS: BP 142/65
--- NOTE | 2018-05-22 05:50 | NUR ---
PT MAKING POOR PROGRESS TOWARDS GOALS. DAY RN REPORTED THAT PT WILL HAVE AN EVALUATION BY HOSPICE. PT MAKES EYE CONTACT BUT REMAINED EXPRESSIONLESS AND DID NOT OR CAN NOT SPEAK. ONLY ALLOW AN ORAL SWAB ONCE WITH WATER.
[2018-05-22 07:19] VITALS: BP 154/69
--- NOTE | 2018-05-22 11:36 | NUR ---
care of pt assumed this am @ ~0700. pt noted to be resting quietly and comfortably in bed. fall precautions in place. pt on room air. vss. pt noted to have movement of lue and lle, but no movement noted to bres. pt non verbal, as she does not respond verbally to questions asked. pt noted to track staff when in room. no family at bs thus far today. pt unwilling to eat her breakfast this am, will attempt again at lunch time. pt incontinent of urine so external female catheter in place.
[2018-05-22 16:27] VITALS: BP 127/62
[2018-05-22 19:20] VITALS: BP 136/55
[2018-05-23 03:15] VITALS: BP 129/62
--- NOTE | 2018-05-23 03:40 | NUR ---
SLEPT MOST OF SHIFT. AWAKENS TO VERBAL STIMULI. OPENS EYES AT TIMES. TURN EVERY 2 HOURS FOR COMFORT AND SKIN CARE. MOUTH CARE GIVEN WITH TURNS. NOT PROGRESSING TOWARDS DISCHARGE GOALS. WORKING ON GOALS AND PLAN OF CARE FOR NOC. CONTINUE TO ASSES CLOESLY. RESTING QUIETLY.
[2018-05-23 07:28] VITALS: BP 142/72
--- NOTE | 2018-05-23 11:58 | NUR ---
RN REPORTS PATIENT WILL BE GOING ON HOSPICE TODAY - AWAITING HOSPICE CONSULT. O.T. WILL BE DISCONTINUED AT THIS TIME. PLEASE RECONSULT IF THERE IS A CHANGE.
--- NOTE | 2018-05-23 12:12 | NUR ---
dp sent facesheet h&p to Hospice,dp will follow up later today and send other requested reports when in
--- NOTE | 2018-05-23 15:25 | NUR ---
NAHOMI reviewed chart and spoke with nursing and attending physician. Palliative care physician consulted and met with pt and family. Pt's family are agreeable with plan for hospice/comfort care measures. Request for referral to [facility]. truck shop mechanic faxed clinical info to [facility]. SW notified [facility] liaison of new referral. Bedside evaluation completed this afternoon around 1400. Currently, pt does not have admission criteria for [facility]. Per water resources technical officer, pt's family is considering having pt admitted for residential care--$300 per day. Pt's family is also considering [place] [facility] for roasterman care with hospice. NAHOMI updated attending physician. NAHOMI is following to assist as needed with discharge planning.
[2018-05-23 16:02] VITALS: BP 154/80
--- NOTE | 2018-05-23 18:55 | NUR ---
PATIENT DOES NOT TRACK. SHE WILL SPONTENEOUSLY OPEN HER EYES BUT UNABLE TO FOLLOW COMMANDS OF ANY KIND. SHE IS NOT EATING. SHE WILL NOT OPEN HER MOUTH TO EAT. TURNED Q2. HOSPICE WAS CONSULTED TODAY. MAY BE ADMITTED TO HOSPICE HOUSE IN AM.
[2018-05-23 19:45] VITALS: BP 148/79
--- NOTE | 2018-05-24 03:39 | NUR ---
ASSUMED PT CARE AROUND 1900. PT SLEPT MOST OF THE NIGHT. OPENS EYE SPONTANEOUSLY OR IN RESPONSE TO VERBAL OR TACTILE STIMULI. NO APPARENT PAIN NOTED. PT IS ABLE TO SQUEEZE LEFT HAND ON COMMAND. Q2H TURN TO PREVENT SKIN BREAKDOWN. EXTRNAL FEMALE CATHETER IN PLACE. FALL PRECAUTIONS IN PLACE. NOT PROGRESSING WELL TOWARD POC GOALS. WILL CONTINUE TO MONITOR FURTHER.
[2018-05-24 04:05] VITALS: BP 151/88
[2018-05-24 08:07] VITALS: BP 155/86
--- NOTE | 2018-05-24 12:19 | NUR ---
PATIENT IS BEING DISCHARGED AT THIS TIME TO [facility]. SHE REMAINS NON VERBAL. DOES NOT TRACK WITH EYES. NOTED TO BE TEARY THIS AM. NIECE HERE WITH HER. DOES NOT SEEM TO BE IN PAIN. REPORT CALLED TO [facility].
--- NOTE | 2018-05-24 13:24 | NUR ---
DISCHARGE NOTE: NAHOMI REVIEWED CHART AND SPOKE WITH NURSING AND ATTENDING PHYSICIAN. PT IS STABLE FOR DISCHARGE TO [facility] TODAY. NAHOMI SPOKE WITH [facility] RN, WHO CONFIRMS THEY ARE ABLE TO ACCEPT PT TODAY. NAHOMI SPOKE WITH PT'S DTR, RUBA, VIA PHONE TO PROVIDE UPDATE. RUBA IS AWARE AND AGREEABLE WITH DISCHARGE PLAN. [facility] WOULD LIKE PT TRANSPORTED VIA EMS AT 1200. NAHOMI ARRANGED AMBULANCE TRANSPORTATION FOR 1200. PT'S DTR SIGNED OUTSIDE THE HOSPITAL DNR FORM. DISCHARGE ORDERS FAXED TO [facility]. NAHOMI UPDATED [facility]IA[facility]. NAHOMI IS FOLLOWING TO ASSIST NEEDED WITH DISCHARGE PLANNING.
== END 2018-05-24 12:23 | disposition hospice, inpatient (51) | DRG 64 ==
LOC: ER 10:13 → 3W 13:43 → ER 13:43 → EROBS 13:43 → 3W 15:02 → ER 05-20 12:03 → 3W 05-20 12:03
PROVIDERS: Nurse Practitioner; ADMIT Hospitalist
DX: I63.512 Cerebral infarction due to unspecified occlusion or stenosis of left middle cerebral artery (principal); G93.41 Metabolic encephalopathy; E87.0 Hyperosmolality and hypernatremia; G81.94 Hemiplegia, unspecified affecting left nondominant side; I10 Essential (primary) hypertension; E78.5 Hyperlipidemia, unspecified; Z66 Do not resuscitate; Z60.2 Problems related to living alone; R13.10 Dysphagia, unspecified; R47.01 Aphasia; E03.9 Hypothyroidism, unspecified; I73.9 Peripheral vascular disease, unspecified; F32.9 Major depressive disorder, single episode, unspecified; Z95.820 Peripheral vascular angioplasty status with implants and grafts; Z88.8 Allergy status to other drugs, medicaments and biological substances; Z82.49 Family history of ischemic heart disease and other diseases of the circulatory system; Z83.3 Family history of diabetes mellitus; Z79.82 Long term (current) use of aspirin; Z79.899 Other long term (current) drug therapy
CPT/HCPCS: 10779; 10879